=== PATIENT | female | born 1960 | race Caucasian/White ===

== ENCOUNTER 2020-05-07 15:39 | Emergency (ER) | payer OTHER, SELFPAY ==
--- NOTE | 2020-05-07 16:02 | PC.NURSE ---
TESTED POSITIVE 04/26 FOR COVID 19. PATIENT STATES CONTINUES WEAKNESS, DECREASE PO INTAKE, BODYACHES, HEADACHE AND NAUSEA. PROVIDER AT BEDSIDE.
[2020-05-07 16:09] VITALS: BP 140/84; PULSE 82; RESP 17; TEMP 37; O2SAT 97
--- NOTE | 2020-05-07 16:22 | ED.URI ---
HPI - URI/Sore Throat General Chief Complaint: Upper Respiratory Symptoms Stated Complaint: COVID SYMPTOMS Time Seen by Provider: 05/07/20 16:00 Source: patient Mode of arrival: ambulatory Limitations: no limitations History of Present Illness HPI Narrative: Patient comes emergency room complaining nausea. Patient states 6 days ago she was diagnosed with COVID-19, patient has been feeling weak, very nauseous, no vomiting, no diarrhea or abdominal pain. Patient states she has not been able to eat or drink much due to the nausea and fever or vomiting. Patient's also tested positive for COVID-19 Related Data Previous Rx's Medication Instructions Recorded benzonatate [Tessalon Perles] 100 mg PO TID PRN #14 cap 05/07/20 ondansetron HCl [Zofran] 4 mg PO Q6H PRN #20 tab 05/07/20 Allergies Allergy/AdvReac Type Severity Reaction Status Date / Time No Known Allergies Allergy Verified 05/07/20 16:09 Review of Systems Review of Systems: Constitutional : Complaining of weakness, generalized malaise, denies fever or chills ENT/Mouth : No Hearing loss, No Ear Pain, No Nasal Congestion, No Sinus Pain, No Hoarseness, No sore throat, No Rhinorrhea, No Swallowing Difficulty Eyes: No Eye Pain, No Swelling, No Redness, No Foreign Body, No Discharge, No Vision Changes Cardiovascular : No Chest Pain, No SOB, No Dyspnea on Exertion, No Orthopnea, No Edema, No Palpitations Respiratory : Complaining of dry Cough, No Sputum, No Wheezing, No Smoke Exposure, No Dyspnea Gastrointestinal : No Nausea, No Vomiting, No Diarrhea, No Constipation, No abdominal Pain, No Hematochezia, No Melena Genitourinary : no irregular bleeding, No Dysuria, No Urinary Frequency, No Hematuria, No Urinary Incontinence, No Urgency, No Flank Pain, No Urinary Flow Changes, No Hesitancy Musculoskeletal : No joint pain, No Myalgias, No Joint Swelling Skin : No Skin Lesions, No rash Neuro : No Weakness, No Numbness, No Paresthesias, No Loss of Consciousness, No Dizziness, No Headache Psych : No Anxiety/Panic, No Depression, No SI/HI/AH/VH, No Social Issues, Heme/Lymph: No Bruising, No Bleeding,No Lymphadenopathy Endocrine : No Polyuria, No Polydipsia, No Temperature Intolerance PMFSH Past Medical History Medical History (Updated 05/07/20 @ 16:32 by Mel Rush MD) HTN (hypertension) Social History Social History Advance Directives: No Advance Directives Information Provided: No Physical Exam Vital Signs: Vital Signs: Last Vital Signs Temp 98.6 F 05/07/20 16:09 Pulse 82 05/07/20 16:09 Resp 17 05/07/20 16:09 BP 140/84 H 05/07/20 16:09 Pulse Ox 97 05/07/20 16:09 Appearance: Alert. Oriented X3. No acute distress. Well appearing , well hydrated Eyes: Pupils equal, round and reactive to light. ENT: Pharynx normal, moist mucous membranes. Neck: Normal inspection. Neck supple. No lymph nodes noted. No crepitus CVS: Normal heart rate and rhythm. Pulses normal. Normal S1 and S2 Respiratory: No respiratory distress. Breath sounds normal. No Wheezing. No rales Abdomen: Soft and nontender. No rigidity. No distention. good BS x4 Skin: Skin warm and dry. Normal skin color. Normal skin turgor. Extremities: No lower extremity edema. No lower extremity edema. No Lacerations. No Rash Neuro: Oriented X 3. No motor deficit. No sensory deficit. Moving all extermities. No slurred speech. Course Course Course Narrative: Patient's physical exam is normal, patient is well hydrated, patient is known to have COVID-19. I discussed with the patient that we can prescribe her medication for nausea to make sure that she is eating and drinking. Discharge Plan Discharge Clinical Impression: Nausea alone Patient Disposition: Home, Self-Care Instructions: Acute Nausea and Vomiting (ED) Additional Instructions: This is a self isolated until you complete 14 days of self-isolation, always wear your face mask. Please follow-up with your primary care physician tomorrow. If you have any worsening or new symptoms, please return to the emergency room or call 911 Prescriptions: New ondansetron HCl [Zofran] 4 mg tablet 4 mg PO Q6H PRN (Reason: nausea and vomiting) Qty: 20 RF: 0 benzonatate [Tessalon Perles] 100 mg capsule 100 mg PO TID PRN (Reason: cough) Qty: 14 RF: 0
[2020-05-07] MEDS: Benzonatate 100 MG CAPSULE PO (16:32)
== END 2020-05-07 17:00 | disposition home or self-care (01) ==
PROVIDERS: Emergency Provider Emergency Medicine
DX: R11.0 Nausea (principal); I10 Essential (primary) hypertension; Z86.19 Personal history of other infectious and parasitic diseases
CPT/HCPCS: 99283